=== PATIENT | female | born 1995 | race Caucasian/White ===

== ENCOUNTER 2017-07-06 12:36 | Emergency (ER) | payer MEDICAID ==
[2017-07-06 12:45] VITALS: RESP 16; TEMP 98.1
[2017-07-06] MEDS ORDERED: ASPIRIN 81 MG CHEWABLE TAB PO ONE (12:52)
--- NOTE | 2017-07-06 12:54 | CPEKG ---
Heart Rate: 82 RR Interval: 732 P-R Interval: 132 QRSD Interval: 92 QT Interval: 368 QTC Interval: 430 P [place]: 55 QRS [place]: 5 T Wave [place]: 20 EKG Severity - NORMAL ECG - EKG Impression: SINUS RHYTHM Electronically Signed By: Alvaro Landis 07-Jul-2017 16:24:36
[2017-07-06 13:04] LABS: PLATELET COUNT 239 10^3/uL (150-400)
--- NOTE | 2017-07-06 13:57 | EDPHY ---
H & P Time Seen by Provider: 07/06/17 12:42 HPI/ROS: 22-year-old female presents complaining of a sensation of chest tightness in her right anterior chest which started 3 or 4 days ago and is worse when taking a deep inspiration. She denies fever or chills. She denies shortness of breath she denies dyspnea on exertion. Approximately 1 year ago she did have a pulmonary embolus following surgery for which she was treated with both Lovenox and warfarin and has completed that treatment is no longer on an anticoagulant She states this does not feel anything like that time that she had a pulmonary embolus at that time she had sharp stabbing chest pain with shortness of breath. She denies leg swelling leg pain, long trips recent surgery, heart palpitations. Review of systems As per HPI General no fever no chills no weakness HEENT no eye pain no eye discharge. No eye redness, no sore throat Respiratory no cough, no shortness of breath Cardiac positive chest pain, no peripheral edema GI no abdominal pain, no diarrhea, no constipation, no nausea, no vomiting no flank pain, no hematuria, no dysuria Musculoskeletal no myalgias, no joint pain Heme no easy bruising, no easy bleeding Endo no polyuria, no polydipsia Skin no rashes, no pruritus Neuro no syncope, no dizziness, no headaches Psych is no suicidal ideation, no homicidal ideation Past Medical/Surgical History: Pulmonary embolus following surgery, treated with Lovenox x1 week followed by warfarin x6 months Social History: College student Smoking Status: Never smoked Physical Exam: 22-year-old female alert and oriented no acute distress nontoxic appearance, afebrile HEENT atraumatic normocephalic, extraocular muscles intact, anicteric Oropharynx negative for erythema negative exudate, tolerating her own secretions Neck supple no meningismus Lungs clear to auscultation bilaterally Chest mild tenderness to palpation right anterior chest between ribs, no rash no swelling no ecchymosis Heart regular rate and rhythm without murmur rub or gallop Abdomen nondistended normoactive bowel sounds soft nontender Back no CVA tenderness, no step-offs, no spinal tenderness Extremities no cyanosis clubbing or edema Neuro alert and oriented, no focal deficits Constitutional: Initial Vital Signs Temperature (C) 36.7 C 07/06/17 12:41 Heart Rate 91 07/06/17 12:41 Respiratory Rate 16 07/06/17 12:41 Blood Pressure 122/81 H 07/06/17 12:41 O2 Sat (%) 97 07/06/17 12:41 O2 Delivery Mode Room Air Allergies/Adverse Reactions: amoxicillin Allergy (Intermediate, Verified 07/06/17 12:45) Hives Sulfa (Sulfonamide Antibiotics) Allergy (Intermediate, Verified 07/06/17 12:45) Hives Home Medications: Medication Instructions Recorded Spironolactone [Aldactone] 07/06/17 Medical Decision Making - Diagnostics Imaging Results: Imaging Impressions Chest X-Ray 07/06/17 12:53 Impression: Normal chest. ED Course/Re-evaluation: Patient seen and evaluated for right-sided chest tightness. EKG normal sinus rhythm Chest x-ray no consolidation, negative for pathology Media CBC, BMP, troponin, D-dimer all within normal limits Wells rule, low risk PERC negative except for prior PE impression Costochondritis Plan Home Ibuprofen p.r.n. Return for any signs of shortness of breath, dyspnea on exertion or sharp chest pain Differential Diagnosis: Differential diagnosis considered but not limited to: Myocardial infarction, angina, pneumonia, bronchitis, pulmonary embolus, pneumothorax, pleural effusion, costochondritis - Data Points Laboratory Results: Laboratory Results 07/06/17 12:59 07/06/17 12:59 07/06/17 07/06/17 07/06/17 12:59 12:59 12:59 WBC 5.47 10^3/uL 10^3/uL (3.80-9.50) RBC 5.20 10^6/uL 10^6/uL (4.18-5.33) Hgb 15.6 g/dL g/dL (12.6-16.3) Hct 45.5 % % (38.0-47.0) MCV 87.5 fL fL (81.5-99.8) MCH 30.0 pg pg (27.9-34.1) MCHC 34.3 g/dL g/dL (32.4-36.7) RDW 12.1 % % (11.5-15.2) Plt Count 239 10^3/uL 10^3/uL (150-400) MPV 9.8 fL fL (8.7-11.7) Neut % (Auto) 52.2 % % (39.3-74.2) Lymph % (Auto) 35.3 % % (15.0-45.0) [place] % (Auto) 7.9 % % (4.5-13.0) Eos % (Auto) 4.0 % % (0.6-7.6) Baso % (Auto) 0.4 % % (0.3-1.7) Nucleat RBC Rel Count 0.0 % % (0.0-0.2) Absolute Neuts (auto) 2.86 10^3/uL 10^3/uL (1.70-6.50) Absolute Lymphs (auto) 1.93 10^3/uL 10^3/uL (1.00-3.00) Absolute Monos (auto) 0.43 10^3/uL 10^3/uL (0.30-0.80) Absolute Eos (auto) 0.22 10^3/uL 10^3/uL (0.03-0.40) Absolute Basos (auto) 0.02 10^3/uL 10^3/uL (0.02-0.10) Absolute Nucleated RBC 0.00 10^3/uL 10^3/uL (0-0.01) Immature Gran % 0.2 % % (0.0-1.1) Immature Gran # 0.01 10^3/uL 10^3/uL (0.00-0.10) D-Dimer < 0.27 ug/mLFEU ug/mLFEU (0.00-0.50) Sodium 141 mEq/L mEq/L (135-145) Potassium 3.9 mEq/L mEq/L (3.5-5.2) Chloride 105 mEq/L mEq/L (97-110) Carbon Dioxide 24 mEq/l mEq/l (22-31) Anion Gap 12 mEq/L mEq/L (8-16) BUN 11 mg/dL mg/dL (7-23) Creatinine 1.0 mg/dL mg/dL (0.6-1.0) Estimated GFR > 60 Glucose 86 mg/dL mg/dL (70-100) Calcium 9.7 mg/dL mg/dL (8.5-10.4) Troponin I < 0.012 ng/mL ng/mL (0.000-0.034) Medications Given: Discontinued Medications Aspirin (Aspirin) 324 mg PO EDNOW ONE Stop: 07/06/17 12:53 Last Admin: 07/06/17 13:01 Dose: 324 mg Departure - Departure Disposition: Home, Routine, Self-Care Clinical Impression: Acute costochondritis Condition: Good Instructions: Costochondritis (ED) Additional Instructions: You can use Ibuprofen 400- 600mg every 8hours as needed for pain for the next 3 - 5 days . if pain worsens or you develop worse symptoms or fever cough worse Shortness of breath or other concerns Return to Emergency dept. If pain does not improve over the next few days follow up with Primary care provider . Referrals: NONE *PRIMARY CARE P,. [Primary Care Provider] - As per Instructions
[2017-07-06 14:02] VITALS: BP 118/75; PULSE 78; O2SAT 96
== END 2017-07-06 14:11 | disposition home or self-care (01) ==
LOC: CED 12:36
DX: M94.0 Chondrocostal junction syndrome [Tietze] (principal)
CPT/HCPCS: 71046-PO; 80048-PO; 84484-PO; 85025-PO; 85378-PO